=== PATIENT | female | born 1980 | race Caucasian/White ===

== ENCOUNTER 2017-08-26 16:33 | Emergency (ER) | payer OTHER ==
--- NOTE | 2017-08-26 17:22 | PDOC ---
History of Present Illness - General History Source: Patient Exam Limitations: No Limitations - History of Present Illness Initial Comments: 08/26/17 17:54 The patient is a 14 weeks 36 year old female , with a significant past medical history of IDDM (on pump), who presents to the emergency department with, one day of intermittent vaginal bleeding and suprapubic pain. The patient states the suprapubic pain has been intermittent throughout the day beginning this morning but was most intense at approx 3:30 pm. She states she is not currently having any suprapubic pain now in the ED. The patient also reports she has had intermittent vaginal bleeding throughout the day which has been mild with a heavy episode of bleeding at approx 3:30 pm at the same time as the suprapubic pain. The patient reports she currently has very mild vaginal bleeding at present. She denies recent fevers, chills, headache or dizziness. She denies recent nausea, vomit, diarrhea or constipation. She denies recent dysuria, frequency, urgency or hematuria. She denies recent chest pain or shortness of breath. Allergies: doxycycline <Evangelista French - Last Filed: 08/26/17 18:51> <Suzy Schuler - Last Filed: 08/29/17 11:03> - General Chief Complaint: Vaginal Bleeding Stated Complaint: VAGINAL BLEEDING, Time Seen by Provider: 08/26/17 16:50 Past History <Evangelista French - Last Filed: 08/26/17 18:51> - Past Medical History Diabetes: Yes - Suicide/Smoking/Psychosocial Hx Smoking Status: No Smoking History: Never smoked Number of Cigarettes Smoked Daily: 0 Hx Alcohol Use: No Drug/Substance Use Hx: No Substance Use Type: None <Suzy Schuler - Last Filed: 08/29/17 11:03> - Past Medical History Allergies/Adverse Reactions: Allergies Allergy/AdvReac Type Severity Reaction Status Date / Time doxycycline Allergy Verified 08/26/17 16:34 Home Medications: Ambulatory Orders Insulin Pump Syringe, 3 ml [Insulin Cartridge] 0 each [facility] ASDIR 08/07/13 Oxycodone HCl/Acetaminophen [Percocet 5-325 mg Tablet -] 1 tab PO BID #5 tablet MDD 2 08/26/17 Review of Systems - Review of Systems Comments:: 08/26/17 17:59 GENERAL/CONSTITUTIONAL: No fever or chills. No weakness. HEAD, EYES, EARS, NOSE AND THROAT: No change in vision. No ear pain or discharge. No sore throat. CARDIOVASCULAR: No chest pain or shortness of breath. RESPIRATORY: No cough, wheezing, or hemoptysis. GASTROINTESTINAL: No nausea, vomiting, diarrhea or constipation. GENITOURINARY: (+) Suprapubic pain. (+) Vaginal bleeding. No dysuria, frequency , or change in urination. MUSCULOSKELETAL: No joint or muscle swelling or pain. No neck or back pain. SKIN: No rash NEUROLOGIC: No headache, vertigo, loss of consciousness, or change in strength/ sensation. ENDOCRINE: No increased thirst. No abnormal weight change. HEMATOLOGIC/LYMPHATIC: No anemia, easy bleeding, or history of blood clots. ALLERGIC/IMMUNOLOGIC: No hives or skin allergy. <Evangelista French - Last Filed: 08/26/17 18:51> *Physical Exam - Vital Signs Last Vital Signs Temp Pulse Resp BP Pulse Ox 98.4 F 76 20 123/76 100 08/26/17 16:34 08/26/17 16:34 08/26/17 16:34 08/26/17 16:34 08/26/17 16:34 - Physical Exam Comments: 08/26/17 18:00 GENERAL: Awake, alert, and fully oriented, in no acute distress HEAD: No signs of trauma EYES: PERRLA, EOMI, sclera anicteric, conjunctiva clear ENT: Auricles normal inspection, hearing grossly normal, nares patent, oropharynx clear without exudates. Moist mucosa NECK: Normal ROM, supple, no lymphadenopathy, JVD, or masses LUNGS: Breath sounds equal, clear to auscultation bilaterally. No wheezes, and no crackles HEART: Regular rate and rhythm, normal S1 and S2, no murmurs, rubs or gallops ABDOMEN: No suprapubic tenderness. Soft, nontender, normoactive bowel sounds. No guarding, no rebound. No masses EXTREMITIES: Normal range of motion, no edema. No clubbing or cyanosis. No cords, erythema, or tenderness NEUROLOGICAL: Cranial nerves II through XII grossly intact. Normal speech, normal gait SKIN: Warm, Dry, normal turgor, no rashes or lesions noted. <Evangelista French - Last Filed: 08/26/17 18:51> Medical Decision Making - Medical Decision Making 08/26/17 18:[address] Kerns at 6:40 pm. Case discussed with Dr. Butcher (local combination truck driver for Dr. Kerns). <Evangelista French - Last Filed: 08/26/17 18:51> - Medical Decision Making Ms Hooker is a 36 yo approximately 14 weeks gestation (based on dates) who presents emergency department with vaginal bleeding and abdominal pain. Patient states her symptoms began this morning with spotting. Approximately one hour prior to arrival she noted severe abdominal pain which she described as labor. When she noted heavy bleeding. She saturated 1 pad. No lightheadedness or dizziness. No chest pain. Patient states her pain is resolved upon presentation to the emergency department. Blood type A+ Differential diagnoses: Threatened AB, inevitable AB, subchorionic hemorrhage 08/26/17 18:47 Case reviewed with patient's covering SOLUTIONS DEVELOPMENT ANALYST - Dr. Butcher I have confirmed that pt blood type is A+ She would prefer if this patient be admitted because miscarriages at this point can result in hemorrhages U/S demonstrates Fetus of 10 week gestation, no FHR, in the lower uterine segment I have had a long conversation with this patient about her US report and her OBs suggestion She has 2 small children at home Does not want to be admitted She has some bleeding, no active hemorrhage, no tissue passed, Pain is minimal We have discussed the ensuing hours to day She will have more bleeding and pass the fetus I have explained that if she is saturating 2 pads/hour x 2 hours she MUST return to the ER If she has severe pain, she must return to the ER I have explained that he OB still prefers for her to be admitted to the hospital (this group works at [facility]) If pt has severe pain, she should return to the ER Clinical Impression: Inevitable Ab, initial presentation <Suzy Schuler - Last Filed: 08/29/17 11:03> *DC/Admit/Observation/Transfer - Attestations Scribe Attestion: 08/26/17 18:00 Documentation prepared by Evangelista French, acting as medical receptionist biller for Suzy Schuler MD. <Evangelista French - Last Filed: 08/26/17 18:51> - Discharge Dispostion Admit: No <Suzy Schuler - Last Filed: 03/15/18 11:03> Diagnosis at time of Disposition: Inevitable - Discharge Dispostion Disposition: HOME Condition at time of disposition: Stable - Prescriptions Prescriptions: Oxycodone HCl/Acetaminophen [Percocet 5-325 mg Tablet -] 1 tab PO BID #5 tablet MDD 2 - Patient Instructions Printed Discharge Instructions: DI for Miscarriage Additional Instructions: N[place] Thank you for coming in to the ER today I am sorry that your Ultrasound is consistent with a miscarriage Please monitor yourself for heavy bleeding IF YOU ARE SOAKING THROUGH 2 PADS/HOUR x 2 HOURS, YOU MUST GO TO THE ER AT [facility] Please follow up with your fixing carpenter TOMORROW Return to the ER for any concerns or complaints - Post Discharge Activity Forms/Work/School Notes: Back to Work
[2017-08-26 17:38] VITALS: BP 123/76; PULSE 76; TEMP 98.4; BMI 25.2
== END 2017-08-26 19:34 | disposition home or self-care (01) ==
LOC: FER 16:33 → UNDOADMOB 16:48 → FM/S 16:48 → FER 19:34
DX: O03.9 Complete or unspecified spontaneous abortion without complication (principal)
CPT/HCPCS: 76801-TC; 99282-25